=== PATIENT | male | born 1975 | race African-American/Black ===

== ENCOUNTER 2016-06-25 16:53 | Emergency (ER) | payer OTHER ==
--- NOTE | ~2016-06-25 | CT4 ---
[facility] A Service of [facility] RADIOLOGY TEXT RESULTS PATIENT: GLENNA MITCHELL LOCATION: [facility] : 77 UNIT #: [id number] AGE: [address]: El Bragg MD SEX: M ORDER DR: [id number] [facility] [address] [place], [place] [address] [id number] MR#: [id number] #: [id number] NAME: GLENNA MITCHELL : 1975 SEX: M STUDY DATE/TIME: 06/25/2016 16:35 UNIT: [facility] ROOM: STUDY DESCRIPTION: CT Abd and Pelv Wo Cont Attending Physician: El Bragg M.D. Ordering Physician: El Bragg M.D. Primary Care Physician: Devang Reyna M.D. MEDICAL IMAGING REPORT This report is preliminary unless electronic signature is present EXAM CT abdomen and pelvis without contrast. HISTORY Back pain and bilateral flank pain for [address] exam was performed with one or more of the following radiation dose reduction techniques: automatic exposure control, adjustment of mA and/or kV according to patient size, and iterative reconstruction. FINDINGS CT abdomen and pelvis was performed without contrast. CT ABDOMEN: There is an approximately 9 cm hypodense region along the lateral mid spleen, difficult to characterize without contrast, but this could be secondary to a splenic infarct. No perisplenic stranding. Mild splenic enlargement measuring close to 14.5 cm in length. The liver, gallbladder, pancreas, kidneys, and adrenal glands are normal. No bowel dilatation. No ascites. No inflammatory stranding. No adenopathy. Appendectomy. CT PELVIS: No pelvic mass or fluid collection. No free fluid. Urinary bladder is unremarkable. IMPRESSION 1. Approximately 9 cm low-density region along the lateral mid spleen could be a splenic infarct but is nonspecific. Mild splenomegaly measuring close to 14.5 cm. No perisplenic fluid or stranding. 2. No urinary calculi or obstruction. No bowel dilatation. No ascites in the abdomen or pelvis. [facility] A Service of [facility] RADIOLOGY TEXT RESULTS PATIENT: GLENNA MITCHELL LOCATION: [facility] : 77 UNIT #: [id number] AGE: [address]: El Bragg MD SEX: M ORDER DR: Dictated by... Sherif Raya M.D. THIS IS AN ELECTRONICALLY VERIFIED REPORT Sherif Raya M.D. at 06/26/2016 11:01 AM [facility]/vandana TD: 06/26/2016 05:27 JOB #: [id number] MEDICAL IMAGING REPORT Page 1 of 1 COPY
[2016-06-25 15:37] LABS: URINE SOURCE CLEAN CATCH
[2016-06-25 15:41] LABS: URINE APPEARANCE CLEAR; URINE BLOOD NEG (NEG); URINE COLOR DK YELLOW; URINE GLUCOSE NEG (NEG); URINE KETONE 2+ (NEG); URINE LEUKOCYTE ESTERASE TRACE (NEG); URINE NITRATE POS (NEG); URINE PH 5.5 (5-8); URINE PROTEIN 1+ (NEG); URINE SPECIFIC GRAVITY 1.027 (1.003-1.035)
[2016-06-25 15:44] LABS: URINE BACTERIA AUWI NEG (NEGATIVE); URINE SQUAMOUS EPITHELIAL CELL OCC /[HPF]
[2016-06-25 15:53] LABS: CULTURE INDICATED? NO; U HYALINE CASTS AUWI 0-2 /[LPF]; URINE BILIRUBIN NEG (NEG)
[~2016-06-25 16:53] MED LIST: BACTRIM DS TABL1 TA1 PO; FLEXERIL10 M1 PO; FLEXERIL10 MG PO; KETOPROFEN PO; NAPROSYN500 MG PO; ORUDIS75 M1 PO
[2016-06-25 18:00] LABS: BASOPHIL# 0.1 X10e3 (0-0.3); BASOPHIL% 0.8 % (0-2.5); EOSINOPHIL# 0.1 X10e3 (0-0.7); EOSINOPHIL% 1.1 % (0.0-7.0); HEMATOCRIT 39.4 % (38.0-50.0); HEMOGLOBIN 12.7 gm/dL (13.0-16.0); LYMPHOCYTE# 7.3 X10e3 (1.0-3.5); LYMPHOCYTE% 72.9 % (17.0-45.0); MEAN CELL VOLUME 89.1 FL (83-96); MEAN CORPUSCULAR HEMOGLOBIN 28.6 PG (28-34); MEAN CORPUSCULAR HGB CONC 32.1 g/dL (30-36); MEAN PLATELET VOLUME 8.9 FL (6.5-11.5); MONOCYTE# 0.5 X10e3 (0-1.0); MONOCYTE% 5.1 % (3.0-12.0); NEUTROPHIL% 20.1 % (40-75); PLATELET COUNT 166 X10e3 (140-420); RED BLOOD COUNT 4.42 X10e (3.90-5.60); RED CELL DISTRIBUTION WIDTH 14.6 % (11.0-15.5)
[2016-06-25 18:01] LABS: DIFF IND YES
[2016-06-25 18:15] LABS: ALBUMIN SERUM 3.5 g/dL (3.5-5.0); BILIRUBIN, DIRECT 0.5 mg/dL (0.0-0.2); BILIRUBIN,INDIRECT 1.1 mg/dL (0.0-0.9); BILIRUBIN,TOTAL 1.6 mg/dL (0.2-2.0); BUN/CREATININE RATIO 8.33; CALCIUM SERUM 8.6 mg/dL (8.4-10.2); CREATININE SERUM 1.2 mg/dL (0.6-1.4); GLOM FILT RATE Estimated 87.2 mL/min (>60); POTASSIUM 3.1 mmol/L (3.5-5.1); PROTEIN TOTAL SERUM 7.3 g/dL (6.0-8.3)
[2016-06-25 18:18] LABS: PLATELET ESTIMATE NORMAL (NORMAL); POIKILOCYTOSIS SL
== END 2016-06-25 18:35 | disposition home or self-care (01) ==
LOC: CED 16:53
PROVIDERS: Emergency Medicine
DX: N39.0 Urinary tract infection, site not specified (principal); R93.3 Abnormal findings on diagnostic imaging of other parts of digestive tract; I10 Essential (primary) hypertension; F17.210 Nicotine dependence, cigarettes, uncomplicated; Z90.89 Acquired absence of other organs; Z88.8 Allergy status to other drugs, medicaments and biological substances; Z79.899 Other long term (current) drug therapy
CPT/HCPCS: 36415; 74176; 80048; 80076; 81003; 83690; 85025; 96361; 96374; 99284; J1885

== ENCOUNTER 2016-08-21 11:40 | Observation (INO) | payer OTHER ==
--- NOTE | ~2016-08-21 | EKG ---
PATIENT: GLENNA MITCHELL UNIT #: [id number] Ventricular Rate: 79 BPM Atrial Rate: 79 BPM P-R Interval: 154 ms QRS Duration: 90 ms Q-T Interval: 384 ms QTC Calculation(Bezet): 440 ms P Norton: 73 degrees Calculated R Norton: 45 degrees Calculated T Norton: 53 degrees Diagnosis Line: Normal sinus rhythm Diagnosis Line: Nonspecific T wave abnormality Diagnosis Line: Abnormal ECG Diagnosis Line: No previous ECGs available Diagnosis Line: Confirmed by JIMY GALVAN MD ([id number]) on Diagnosis Line: 08/22/2016 9:18:03 PM INTERPRETING MD: SHEA
--- NOTE | ~2016-08-21 | ST ---
Unit #: [id number] #: [id number] Patient: GLENNA MITCHELL [id number] [address] [address] [id number] I MR#: [id number] NAME: GLENNA MITCHELL : 1975 SEX: M STUDY DATE/TIME: 08/22/2016 UNIT: C5B ROOM: 547 STUDY DESCRIPTION: Stress test Attending Physician: Inna Dacosta M.D. Primary Care Physician: Devang Reyna M.D. CARDIOLOGY REPORT PROCEDURE PERFORMED Stress test. REPORT Baseline EKG - Normal sinus rhythm with ventricular rate 90 beats per minute, left ventricular hypertrophy, slow R wave progression, low voltage in AVL, T wave inversion in lead III. Lexiscan is a 4-minute test with Lexiscan being injected within the first minute, followed by Cardiolite. FINDINGS 1. EKG during the test was equivocal to baseline. No acute ischemic changes. 2. Maximum heart rate response was 116 beats per minute with a maximum blood pressure response of 180/100 mmHg. 3. The patient had no complaints of chest pain, palpitations or dizziness. Had increased shortness of breath and fatigue, which resolved in recovery phase. 4. It is noted that the patient's blood pressure at the end of recovery phase was 162/92 mmHg. 5. It is noted that the patient did not receive his morning dose of medication. The nurse gave Norvasc 5 mg p.o. immediately in recovery phase. 6. Radionuclide tests pending. Please correlate with nuclear images. Dictated by... Edith Hart A.P.R.NNevin for June Turcios/db TD: 08/22/2016 11:33 JOB #: [id number] Unit #: [id number] #: [id number] Patient: GLENNA MITCHELL CARDIOLOGY REPORT Page 1 of 1 X Edith Hart APRN CARDIOLOGY REPORT
--- NOTE | ~2016-08-21 | BMI ---
[facility] Nutrition Therapy DATE: 08/22/16 Patient: GLENNA MITCHELL Physician: ATTPRE Address: [address] Room/Bed: [address] [place] [address], Zip: [place] [address] Admit Date: 08/21/16 Date of : [birth year] Height: 6 1 Weight: 399 181.4 HIGH BMI NOTE: DX: 41 Y.O. MALE ADMITTED FOR CHEST PAIN ANTHROPOMETRICS: 6'1", WT: 400# (182 KG), BMI: 52.8 DIET: NPO RECOMMENDATIONS: 1. ONCE MEDICALLY FEASIBLE, ADVANCE DIET INDICATED TO HEALTHY HEART TO PROMOTE GRADUAL WEIGHT LOSS TOWARDS HEALTHY BMI (19.0-25.0) OR +/-10%IBW RD WILL F/U PER PROTOCOL Respectfully, CASTILLO GO MS, RD, LD [facility] cc: client file
--- NOTE | ~2016-08-21 | CR72 ---
[facility] A Service [facility] RADIOLOGY TEXT RESULTS PATIENT: GLENNA MITCHELL LOCATION: [place] [address] : [birth year] UNIT #: [id number] AGE: [address]: Inna Dacosta MD SEX: M ORDER DR: [id number] [address] [address] [id number] MR#: [id number] Acc #: [id number] NAME: GLENNA MITCHELL : 1975 SEX: M STUDY DATE/TIME: 08/21/2016 12:15 UNIT: CLARA ROOM: STUDY DESCRIPTION: CR Chest Single View Portable Attending Physician: El Head M.D. Ordering Physician: El Head M.D. Primary Care Physician: Devang Reyna M.D. MEDICAL IMAGING REPORT This report is preliminary unless electronic signature is present EXAM AP portable chest. DATE 08/21/2016 HISTORY 41-year-old male with chest pain and tightness since this morning. Hypertension. Smoking history. COMPARISON PA and lateral chest radiograph, 03/13/2009. FINDINGS A single AP portable view of the chest shows both lungs to be clear. The heart is normal in size. The mediastinal contour is normal. No significant bone abnormalities are seen. IMPRESSION Normal portable chest. Dictated by... Pauly Gee M.D. THIS IS AN ELECTRONICALLY VERIFIED REPORT Pauly Gee M.D. at 08/22/2016 8:[address] [facility]/marly TD: 08/21/2016 14:05 JOB #: [id number] [facility] A Service [facility] RADIOLOGY TEXT RESULTS PATIENT: GLENNA MITCHELL LOCATION: [facility] 547 : [birth year] UNIT #: [id number] AGE: [address]: Inna Dacosta MD SEX: M ORDER DR: MEDICAL IMAGING REPORT Page 1 of 1 COPY
--- NOTE | ~2016-08-21 | TH ---
Unit #: [id number] #: [id number] Patient: GLENNA MITCHELL [id number] [address] [address] [id number] I MR#: [id number] NAME: GLENNA MITCHELL : 1975 SEX: M STUDY DATE/TIME: 08/22/2016 UNIT: C5B ROOM: 547 STUDY DESCRIPTION: Attending Physician: Inna Dacosta M.D. Primary Care Physician: Devang Reyna M.D. CARDIOLOGY REPORT EXAM Lexiscan Cardiolite stress test, nuclear portion. PROCEDURE Using technetium 99m labeled Cardiolite, rest and stress SPECT images were obtained. Multiple SPECT images were obtained in various views including horizontal and vertical long axis and short axis views of the left ventricle. Images were obtained by gated SPECT method. The patient was administered 11 mCi of Cardiolite at rest. The patient was administered 35.7 mCi of Cardiolite after Lexiscan infusion was completed. On the stress images, there is a small area of mild decreased isotope activity in the anteroapical wall. The rest images showed normal perfusion. Comparing rest and stress images, there is a small area of possible stress-induced ischemia involving the anteroapical wall of the left ventricle cannot be ruled out. The left ventricular ejection fraction is calculated to be 46%. There is mild global hypokinesis seen. CONCLUSION 1. A small area of possible stress-induced ischemia involving the anteroapical wall of the left ventricular cannot be ruled out. 2. The left ventricular ejection fraction is calculated to be 46%. 3. There is mild global hypokinesis seen. 4. Technically limited study due to patient's body habitus. Clinical correlation is requested. Dictated by... June Turcios TD: 08/22/2016 15:15 JOB #: [id number] Unit #: [id number] #: [id number] Patient: GLENNA MITCHELL CARDIOLOGY REPORT Page 1 of 1 X Inna Dacosta MD <ELECTRONICALLY SIGNED> 09/30/16 1421 CARDIOLOGY REPORT
--- NOTE | ~2016-08-21 | HP ---
Unit #: [id number] #: [id number] Patient: GLENNA MITCHELL [id number] [address] [place], [place] [address] [id number] I MR#: [id number] NAME: GLENNA MITCHELL ROOM: 547 Age: 41 Sex: M Admission Date: 08/21/2016 : 1975 Attending Physician: Inna Dacosta M.D. Primary Care Physician: Devang Reyna M.D. HISTORY AND PHYSICAL HISTORY OF PRESENT ILLNESS This is a 41-year-old male who presented to the emergency room for evaluation of chest pain. Last night, he developed substernal chest pain that he describes as tightness that is nonradiating to his neck, arm or jaw. He had no associated dyspnea or diaphoresis, dizziness or palpitations. This morning, after he awakened, he had the same chest tightness. Later in the morning, at approximately 11 a.m., he went to his mother's house to move furniture and the chest pain worsened prompting him to come to the emergency room for evaluation. In the emergency room, he was hypertensive with blood pressure 171/99 mmHg. Troponin is negative with no acute EKG changes. He gives a history of hypertension but has not been on any antihypertensive medications in the past. He has had no prior cardiac history of testing. There is elevation of his liver enzymes. He denies fever or chills. In June 2015, he had a visit in the emergency room because of back pain. CT of the abdomen and pelvis revealed mild splenomegaly but he failed to follow up. He denies any current symptoms. PAST MEDICAL HISTORY 1. Hypertension. 2. Chronic back pain. 3. Mild splenomegaly. 4. Active smoker. PAST SURGICAL HISTORY Appendectomy. HOME MEDICATIONS No current medications. ALLERGIES No known drug allergies. SOCIAL HISTORY The patient smokes 3 to 4 cigarettes per day, cut down from one-half pack per day. He denies illicit drug or alcohol use. FAMILY HISTORY Negative for coronary artery disease. REVIEW OF SYSTEMS CONSTITUTIONAL: Negative for fever or chills. No weight loss or weight gain. No fatigue or weakness. HEENT: No headache, hearing or vision changes. No difficulty with swallowing. No dizziness. Unit #: [id number] #: [id number] Patient: GLENNA MITCHELL CARDIOVASCULAR: Chest tightness as described in the HPI. Denies palpitations. No paroxysmal nocturnal dyspnea or orthopnea. No syncope or near syncope. RESPIRATORY: Negative for dyspnea, cough or hemoptysis. GASTROINTESTINAL: No abdominal pain, nausea or vomiting. No constipation or melena. EXTREMITIES: Negative for lower extremity edema. PHYSICAL EXAMINATION VITAL SIGNS: Blood pressure 157/91, heart rate 84, temperature 98.7, BMI 52. GENERAL: This is a tall, obese 41-year-old male who is in no acute distress. NEUROLOGIC: He is awake, alert, and oriented x3. No focal weaknesses. NECK: Trachea is midline. No thyromegaly or lymphadenopathy. No jugular venous distention. LUNGS: Clear without rales, rhonchi, or wheezes. HEART: S1, S2. Heart sounds normal. No murmurs, rubs, or clicks. Regular rate and rhythm. ABDOMEN: Soft, nontender. Bowel sounds are present. EXTREMITIES: Without leg edema. SKIN: Warm and dry. DIAGNOSTIC STUDIES LABORATORY: Glucose 95, BUN 15, creatinine 1.0, sodium 138, potassium 3.5, AST 51, ALT 60. Troponin less than 0.05 times 2. White count 5.1, hemoglobin 13.7, hematocrit 42.7, platelet count 255. IMAGING: Chest x-ray shows no active disease. CARDIOVASCULAR: EKG with sinus tachycardia rate of 93 beats per minute. No acute ischemic changes. IMPRESSION 1. Chest pain, questionable etiology. 2. Uncontrolled hypertension. 3. Obesity. PLAN 1. Will rule out myocardial infarction with repeat troponin. If negative, will proceed with exercise Cardiolite stress test or rule out coronary artery disease. 2. 2D echocardiogram to evaluate left ventricular systolic function. 3. Lipid profile and TSH will be obtained. 4. Control blood pressure with addition of Norvasc 5 mg b.i.d. 5. If stress test is normal, the patient will be discharged home in the a.m. Dictated by Rashaad Kellogg A.P.R.N. for June Turcios/amelia Unit #: [id number] #: [id number] Patient: GLENNA MITCHELL TD: 08/21/2016 18:25 JOB #: [id number] HISTORY AND PHYSICAL Page 1 of 1 X Rashaad Kellogg APRN HISTORY AND PHYSICAL
[2016-08-21 12:36] LABS: BASOPHIL# 0.1 X10e3 (0-0.3); BASOPHIL% 1.1 % (0-2.5); EOSINOPHIL# 0.1 X10e3 (0-0.7); EOSINOPHIL% 2.6 % (0.0-7.0); HEMATOCRIT 42.7 % (38.0-50.0); HEMOGLOBIN 13.7 gm/dL (13.0-16.0); LYMPHOCYTE# 2.6 X10e3 (1.0-3.5); LYMPHOCYTE% 50.9 % (17.0-45.0); MEAN CELL VOLUME 88.8 FL (83-96); MEAN CORPUSCULAR HEMOGLOBIN 28.5 PG (28-34); MEAN CORPUSCULAR HGB CONC 32.1 g/dL (30-36); MEAN PLATELET VOLUME 8.4 FL (6.5-11.5); MONOCYTE# 0.4 X10e3 (0-1.0); MONOCYTE% 8.3 % (3.0-12.0); NEUTROPHIL# 1.9 X10e3 (1.5-7.1); NEUTROPHIL% 37.1 % (40-75); PLATELET COUNT 255 X10e3 (140-420); RED CELL DISTRIBUTION WIDTH 15.4 % (11.0-15.5); WHITE BLOOD COUNT 5.1 X10e3 (4.0-10.5)
[2016-08-21 12:40] LABS: POC - TROPONIN <0.05 ng/mL (<=0.05)
[2016-08-21 12:52] LABS: DIFF IND YES
[2016-08-21 12:53] LABS: ALBUMIN SERUM 4.4 g/dL (3.5-5.0); BILIRUBIN, DIRECT 0.2 mg/dL (0.0-0.2); BILIRUBIN,INDIRECT 1.2 mg/dL (0.0-0.9); BILIRUBIN,TOTAL 1.4 mg/dL (0.2-2.0); CALCIUM SERUM 9.4 mg/dL (8.4-10.2); GLOM FILT RATE Estimated 108.6 mL/min (>60); POTASSIUM 3.5 mmol/L (3.5-5.1); PROTEIN TOTAL SERUM 8.4 g/dL (6.0-8.3)
[2016-08-21] MEDS ORDERED: NO MEDICATIONS (14:00)
[2016-08-21 14:06] LABS: PLATELET ESTIMATE NORMAL (NORMAL)
[2016-08-21 14:11] LABS: POC - CKMB 2.7 ng/mL (0.0-7.9); POC - TROPONIN <0.05 ng/mL (<=0.05)
[2016-08-21 20:00] LABS: %MB 0.3 % (0.0-4.0); MB 3.4 ng/ml
[2016-08-22 01:59] LABS: CHOLESTEROL 129 mg/dL (0-200); HDL CHOLESTEROL 30 mg/dL (29-75); LDL CHOLESTEROL 68 mg/dL ([, -130]); LDL/HDL RATIO 2 RATIO (0-4); TRIGLYCERIDES 155 mg/dL (10-160)
[2016-08-22 02:00] LABS: %MB 0.3 % (0.0-4.0); MB 3.2 ng/ml
[2016-08-22 08:43] LABS: %MB 0.4 % (0.0-4.0)
[2016-08-22] MEDS ORDERED: LISINOPRIL10 MG PO (16:18)
[2016-08-22] MEDS ORDERED: ASPIRIN81 MG PO (16:18)
[2016-08-22] MEDS ORDERED: COREG3.125 MG PO (16:19)
== END 2016-08-22 18:09 | disposition home or self-care (01) ==
LOC: CED 11:40 → CEDOF 14:45 → C5B 14:45 → CEDOF 15:04 → CED 15:04 → CEDOF 16:38 → C5B 16:38
PROVIDERS: Emergency Medicine; Internal Medicine Cardiovascular Disease
DX: R07.89 Other chest pain (principal); I10 Essential (primary) hypertension; E66.9 Obesity, unspecified; F17.210 Nicotine dependence, cigarettes, uncomplicated
CPT/HCPCS: 36415; 71010; 78452; 80048; 80061; 80076; 82550; 82553; 82947; 84443; 84484; 85025; 93005; 93017; 93306; 96372; 99291; A9500; G0378; J1650; J2785